=== PATIENT | male | born 1980 | race Caucasian/White ===

== ENCOUNTER 2017-02-26 16:52 | Emergency (ER) | payer MEDICAID ==
[~2017-02-26] VITALS: Ht 175.3 cm; Wt 80.1 kg
[2017-02-26 16:57] VITALS: BP 103/63
[2017-02-26] MEDS ORDERED: DIPH,PERTUSS(ACELL),TET VAC/PF 0.5 ML IM-VACC ONE ×2 (17:24→17:30)
== END 2017-02-26 18:30 | disposition home or self-care (01) ==
LOC: ED 18:26
DX: S10.11XA Abrasion of throat, initial encounter (principal); X58.XXXA Exposure to other specified factors, initial encounter; Y93.89 Activity, other specified; Y99.8 Other external cause status; Y92.89 Other specified places as the place of occurrence of the external cause
CPT/HCPCS: 90471; 90715